=== PATIENT | male | born 1970 | race Caucasian/White ===

== ENCOUNTER 2023-08-06 10:24 | Outpatient (CLI) | payer OTHER, SELFPAY ==
[2023-08-06 13:14] LABS: Basophils Absolute Auto 0.2 K/mm3 (0.0-0.1); Basophils Percent Auto 1.2 % (0.2-1.2); Eosinophils Absolute Auto 0.3 K/mm3 (0-0.3); Eosinophils Percent Auto 2.2 % (0-4.4); Hematocrit 53.4 % (42.0-52.0); Hemoglobin 18.5 g/dL (14.0-18.0); Immature Granulocyte Absolute 0.08 K/mm3 (0.00-0.031); Immature Granulocyte Percent A 0.5 % (0-0.5); Lymphocytes Absolute Auto 3.59 K/mm3 (0.9-3.2); Lymphocytes Percent Auto 24.4 % (18.3-44.2); Mean Corpuscular HGB Conc 34.6 g/dl (32-36); Mean Corpuscular Hemoglobin 33.6 pg (26-34); Mean Corpuscular Volume 96.9 fl (80-100); Mean Platelet Volume 10.9 fl (7.4-10.4); Monocytes Absolute Auto 1.3 K/mm3 (0.1-0.6); Monocytes Percent Auto 8.5 % (2.6-8.5); Neutrophils Absolute Auto 9.3 K/mm3 (1.3-6.7); Neutrophils Percent Auto 63.2 % (45.5-73.1); Platelet Count Result 434 k/mm3 (150-375); Red Blood Count 5.51 M/mm3 (4.6-6.20); Red Cell Distribution Width 13.7 % (11.5-14.5); White Blood Count 14.7 K/mm3 (4.5-10.0)
[2023-08-06 13:15] LABS: Alanine Aminotransferase 32 U/L (6-50); Albumin Level 4.4 g/dL (3.5-5.1); Alkaline Phosphatase 97 U/L (38-126); Anion Gap 7 mmol/L (8-16); Aspartate Amino Transferase 89 U/L (17-59); Bilirubin,Total 0.7 mg/dL (0.2-1.3); Blood Urea Nitrogen 7 mg/dL (9-20); Calcium 9.5 mg/dL (8.4-10.2); Carbon Dioxide 29 mmol/L (22-30); Chloride 101 mmol/L (98-107); Cholesterol 172 mg/dL (0-200); Estimated Glomerular Filt Rate > 60; Glucose 108 mg/dL (65-110); HDL Direct 45 mg/dL; Potassium 4.1 mmol/L (3.4-5.0); Sodium 137 mmol/L (137-145); Triglycerides 124 mg/dL (<150)
[2023-08-06 13:26] LABS: LDL Cholesterol Direct 93 mg/dL
[2023-08-08 20:47] LABS: PSA, Free 0.11 ng/mL; PSA, Total 0.7 ng/mL (<=4.0)
[2023-08-09 11:42] LABS: Vitamin D 1,25 (OH)2 Total 38 pg/mL (18-72); Vitamin D2 1,25 (OH)2 <8 pg/mL; Vitamin D3 1,25 (OH)2 38 pg/mL
== END 2023-08-06 10:25 | disposition home or self-care (01) ==
LOC: ANHGOSHLAB 10:26
PROVIDERS: PCP Family Medicine; Visit Provider Nurse Practitioner Family
DX: E55.9 Vitamin D deficiency, unspecified (principal); Z00.00 Encounter for general adult medical examination without abnormal findings; Z12.5 Encounter for screening for malignant neoplasm of prostate
CPT/HCPCS: 36415; 80053; 80061; 82652; 84153; 84154; 84443; 85025

== ENCOUNTER 2024-02-05 10:21 | Outpatient (CLI) | payer OTHER, SELFPAY ==
[2024-02-05 14:40] LABS: Alanine Aminotransferase 32 U/L (6-50); Albumin Level 4.3 g/dL (3.5-5.1); Alkaline Phosphatase 103 U/L (38-126); Anion Gap 5 mmol/L (4-12); Aspartate Amino Transferase 131 U/L (17-59); Basophils Absolute Auto 0.3 K/mm3 (0.0-0.1); Basophils Percent Auto 1.5 % (0.2-1.2); Bilirubin,Total 0.8 mg/dL (0.2-1.3); Blood Urea Nitrogen 11 mg/dL (9-20); Calcium 9.2 mg/dL (8.4-10.2); Carbon Dioxide 29 mmol/L (22-30); Chloride 104 mmol/L (98-107); Cholesterol 157 mg/dL (0-200); Eosinophils Percent Auto 6.1 % (0-4.4); Estimated Glomerular Filt Rate > 60; Glucose 117 mg/dL (65-110); HDL Direct 36 mg/dL; Hematocrit 54.8 % (42.0-52.0); Hemoglobin 18.3 g/dL (14.0-18.0); Immature Granulocyte Absolute 0.09 K/mm3 (0.00-0.031); Immature Granulocyte Percent A 0.5 % (0-0.5); Lymphocytes Absolute Auto 3.13 K/mm3 (0.9-3.2); Lymphocytes Percent Auto 18.6 % (18.3-44.2); Mean Corpuscular HGB Conc 33.4 g/dl (32-36); Mean Corpuscular Hemoglobin 33.2 pg (26-34); Mean Corpuscular Volume 99.3 fl (80-100); Monocytes Absolute Auto 1.5 K/mm3 (0.1-0.6); Monocytes Percent Auto 9.1 % (2.6-8.5); Neutrophils Absolute Auto 10.8 K/mm3 (1.3-6.7); Neutrophils Percent Auto 64.2 % (45.5-73.1); Platelet Count Result 373 k/mm3 (150-375); Red Blood Count 5.52 M/mm3 (4.6-6.20); Red Cell Distribution Width 15.2 % (11.5-14.5); Sodium 138 mmol/L (137-145); Triglycerides 134 mg/dL (<150); White Blood Count 16.8 K/mm3 (4.5-10.0)
[2024-02-05 14:51] LABS: LDL Cholesterol Direct 90 mg/dL
[2024-02-08 13:19] LABS: Vitamin D 1,25 (OH)2 Total 50 pg/mL (18-72); Vitamin D2 1,25 (OH)2 <8 pg/mL; Vitamin D3 1,25 (OH)2 50 pg/mL
== END 2024-02-05 10:22 | disposition home or self-care (01) ==
LOC: ANHGOSHLAB 10:23
PROVIDERS: PCP Family Medicine; Visit Provider Nurse Practitioner Family
DX: Z00.00 Encounter for general adult medical examination without abnormal findings (principal); E55.9 Vitamin D deficiency, unspecified; Z12.11 Encounter for screening for malignant neoplasm of colon; Z12.12 Encounter for screening for malignant neoplasm of rectum
CPT/HCPCS: 36415; 80053; 80061; 82652; 84443; 85025

== ENCOUNTER 2024-02-08 09:37 | Outpatient (CLI) | payer OTHER, SELFPAY ==
--- NOTE | ~2024-02-08 | US_ITS ---
EXAMINATION: US soft tissue head and neck DATE: 02/08/2024 10:07 INDICATION: Localized swelling, mass and lump, neck. TECHNIQUE: Multiple grayscale and Doppler ultrasound images of the head and neck were obtained. COMPARISON: None FINDINGS: There are normal lymph nodes in the neck bilaterally. IMPRESSION: 1. No abnormal neck mass or lymphadenopathy. Reviewed, dictated and finalized at location A.
--- NOTE | ~2024-02-08 | US_ITS ---
EXAMINATION: US abdomen complete DATE: 02/08/2024 10:06 INDICATION: Abnormal liver function tests. TECHNIQUE: Multiple grayscale and Doppler ultrasound images of the abdomen were obtained. COMPARISON: None FINDINGS: The visualized portions of the head and body of the pancreas are normal. The liver is keke l without focal lesion. There is normal flow in main portal vein. The gallbladder is normal in size. No gallstones or gallbladder wall thickening. There is no sonographic Kevin sign. The common duct is normal and measures 4 mm. The kidneys are normal in size. The spleen is absent. Abdominal aorta is n ormal in caliber. The inferior vena cava is normal. IMPRESSION: 1. 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 Reviewed, dictated and finalized at location A.
== END 2024-02-08 09:38 ==
LOC: GOSHIMG 09:38
PROVIDERS: PCP Family Medicine; Visit Provider Nurse Practitioner Family
DX: R74.8 Abnormal levels of other serum enzymes (principal); R22.1 Localized swelling, mass and lump, neck
CPT/HCPCS: 76536; 76700